=== PATIENT | female | born 1940 | race Caucasian/White ===

== ENCOUNTER 2016-08-26 09:35 | Day surgery (SDC) | payer OTHER ==
--- NOTE | ~2016-08-26 | EGD ---
EGD REPORT [facility] [address] [place] [address] NAME: BALBINA SOUSA : [birth year] STATUS : REG [facility]#: [id number] AGE: 76 ADM/REG DATE : 08/26/16 MR#: [id number] REPORT SERV DATE: 08/26/16 DICTATED BY: SALOMÓN GASTON DATE: 08/26/16 REPORT STATUS : Draft [facility]ANSCRIB[facility]: [facility] DATE: 08/26/16 Endoscopy Center Patient Name: Balbina Sousa Date of : 1940 Attending MD: SALOMÓN GASTON MD Procedure Date No Time: 08/26/2016 Procedure: Colonoscopy Indications: Clinically significant diarrhea of unexplained origin, FH of Colonic Polyps - 1st degree relative, Fecal incontinence Referring MD: CHENTE CLARK Medicines: as per anesthesia Complications: No immediate complications. Procedure: Pre-Anesthesia Assessment: - ASA Grade Assessment: III - A patient with severe systemic disease. After I obtained informed consent, the scope was passed under direct vision. Throughout the procedure, the patient's blood pressure, pulse, and oxygen saturations were monitored continuously. The [facility] [id number] was introduced through the anus and advanced to the cecum, identified by appendiceal orifice and ileocecal valve. The colonoscopy was somewhat difficult due to significant looping and a tortuous colon. The patient tolerated the procedure. The quality of the bowel preparation was adequate to identify polyps. Findings: The perianal and digital rectal examinations were normal. A few small and large-mouthed diverticula were found in the sigmoid colon and in the descending colon. Internal hemorrhoids were found during endoscopy and were mild. Four biopsies were obtained in the rectum and in the ascending colon with cold forceps for histology. Impression: - Diverticulosis in the sigmoid colon and in the descending colon. - Internal hemorrhoids. - Four biopsies were obtained in the rectum and in the ascending colon. Recommendation: - Await pathology results. - Repeat colonoscopy in 5 years for surveillance. Procedure Code(s): --- Professional --- EGD REPORT [place] [address] [address] NAME: BALBINA SOUSA : [birth year] STATUS : REG [facility]#: [id number] AGE: 76 ADM/REG DATE : 08/26/16 MR#: [id number] REPORT SERV DATE: 08/26/16 DICTATED BY: SALOMÓN GASTON. DATE: 08/26/16 REPORT STATUS : Draft TRANSCRIBED BY: [employer] DATE: 08/26/16 [id number], Colonoscopy, flexible, proximal to splenic flexure; with biopsy, single or multiple Diagnosis Code(s): --- Professional --- K64.8, Other hemorrhoids K57.30, Diverticulosis of large intestine without perforation or abscess without bleeding R19.7, Diarrhea, unspecified Z83.71, Family history of colonic polyps R15.9, Full incontinence of feces CPT copyright 2013 [employer]. All rights reserved. The codes documented in this report are preliminary and upon service cleaner review may be revised to meet current compliance requirements. SALOMÓN GASTON MD 08/26/2016 11:47 AM This report has been signed electronically. Number of Addenda: 0 Note Initiated On: 08/26/2016 10:52 AM Scope Withdrawal Time 0 hours 15 minutes 41 seconds [address] [address]
--- NOTE | ~2016-08-26 | EGD ---
EGD REPORT [facility] [address] [place] [address] NAME: BALBINA SOUSA : 44 STATUS : REG [facility]#: [id number] AGE: 76 ADM/REG DATE : 08/26/16 MR#: [id number] REPORT SERV DATE: 08/26/16 DICTATED BY: SALOMÓN GASTON DATE: 08/26/16 REPORT STATUS : Draft [facility]ANS[facility]IBED [facility]: [facility] DATE: 08/26/16 Endoscopy Center Patient Name: Balbina Sousa Date of : 1940 Attending MD: SALOMÓN GASTON MD Procedure Date No Time: 08/26/2016 Procedure: Upper GI endoscopy Indications: Dysphagia, Heartburn, Suspected esophageal reflux, Unexplained chest pain, Diarrhea Referring MD: CHENTE CLARK Medicines: as per anesthesia Complications: No immediate complications. Procedure: Pre-Anesthesia Assessment: - ASA Grade Assessment: III - A patient with severe systemic disease. After obtaining informed consent, the endoscope was passed under direct vision. Throughout the procedure, the patient's blood pressure, pulse, and oxygen saturations were monitored continuously. The GIF H190 [id number] was introduced through the mouth, and advanced to the third part of duodenum. The upper GI endoscopy was accomplished without difficulty. The patient tolerated the procedure. Findings: Evidence of a Sahil fundoplication was found at the gastroesophageal junction. The wrap appeared intact. This was traversed. The scope was withdrawn. Dilation was performed with a Araujo dilator with no resistance at 42 Fr. The entire examined stomach was normal. The examined duodenum was normal. Biopsies were taken with a cold forceps for histology. Impression: - A Sahil fundoplication was found. The wrap appears intact. Dilated. - Normal stomach. - Normal examined duodenum. Biopsied. Recommendation: - Await pathology results. - Follow an antireflux regimen. - Continue present medications. Procedure Code(s): --- Professional --- 80000, Esophagogastroduodenoscopy, flexible, transoral; with biopsy, single or multiple EGD REPORT [address] [place]. [address] NAME: BALBINA SOUSA : 44 STATUS : REG [facility]#: [id number] AGE: 76 ADM/REG DATE : 08/26/16 MR#: [id number] REPORT SERV DATE: 08/26/16 DICTATED BY: SALOMÓN GASTON. DATE: 08/26/16 REPORT STATUS : Draft TRANSCRIBED BY: [email or web address] DATE: 08/26/16 [id number], Dilation of esophagus, by unguided sound or bougie, single or multiple passes Diagnosis Code(s): --- Professional --- Z98.89, Other specified postprocedural states R13.10, Dysphagia, unspecified R12, Heartburn R07.9, Chest pain, unspecified R19.7, Diarrhea, unspecified CPT copyright 2013 [employer]. All rights reserved. The codes documented in this report are preliminary and upon drapery worker review may be revised to meet current compliance requirements. SALOMÓN GASTON MD 08/26/2016 11:16 AM This report has been signed electronically. Number of Addenda: 0 Note Initiated On: 08/26/2016 10:56 AM Scope Withdrawal Time 0 hours 0 minutes [address] [place] [address] [place] [address]
[~2016-08-26 09:35] MED LIST: AMIT25 PO; ASTELIN NAS; ATRONASAL3 NAS; BUT/APAP/CA2 OR; FIORICET 50-301 EACH PO; FRESHKOTE OPH; LYRICA75 PO; MCZ25 PO; NASOCORT; NORCO1 TA1 PO; PR25 PO; PROTONIX PO; SINGULAIR1 PO; TYLENOL ARTH650 MG PO; XANAX1 MG PO; XYZAL5 MG PO
== END 2016-08-26 23:59 | disposition home or self-care (01) ==
LOC: DMU 09:35
PROVIDERS: Internal Medicine Gastroenterology
PROC: 0D747ZZ Dilation of Esophagogastric Junction, Via Natural or Artificial Opening (ICD-10-PCS; 2016-08-26)
PROC: 0DBK8ZX Excision of Ascending Colon, Via Natural or Artificial Opening Endoscopic, Diagnostic (ICD-10-PCS; principal; 2016-08-26 11:00)
PROC: 0DBP8ZX Excision of Rectum, Via Natural or Artificial Opening Endoscopic, Diagnostic (ICD-10-PCS; 2016-08-26 11:00)
PROC: 0DB98ZX Excision of Duodenum, Via Natural or Artificial Opening Endoscopic, Diagnostic (ICD-10-PCS; 2016-08-26 11:00)
DX: K64.8 Other hemorrhoids (principal); K57.30 Diverticulosis of large intestine without perforation or abscess without bleeding; R19.7 Diarrhea, unspecified; R15.9 Full incontinence of feces; R13.10 Dysphagia, unspecified; R12 Heartburn; R07.9 Chest pain, unspecified; F41.9 Anxiety disorder, unspecified; I10 Essential (primary) hypertension; G47.33 Obstructive sleep apnea (adult) (pediatric); Z83.71 Family history of colonic polyps; Z88.0 Allergy status to penicillin; Z98.890 Other specified postprocedural states; Z88.1 Allergy status to other antibiotic agents; Z88.5 Allergy status to narcotic agent; Z88.6 Allergy status to analgesic agent; Z88.8 Allergy status to other drugs, medicaments and biological substances; Z79.891 Long term (current) use of opiate analgesic; Z79.899 Other long term (current) drug therapy
CPT/HCPCS: 88305